=== PATIENT | male | born 1945 | race Caucasian/White ===

== ENCOUNTER → 2018-02-03 13:09 | Outpatient (CLI) | payer MEDICARE, SELFPAY | PROVIDERS: PCP Family Medicine; Visit Provider Urology | DX: Z12.5 Encounter for screening for malignant neoplasm of prostate (principal); R97.20 Elevated prostate specific antigen [PSA] | CPT/HCPCS: 36415; 84153 ==

== ENCOUNTER 2018-04-29 21:26 | Emergency (ER) | payer MEDICARE, SELFPAY ==
[2018-04-29 21:34] VITALS: BP 129/97; PULSE 138; RESP 16; TEMP 36.7; O2SAT 99; BMI 25.7
--- NOTE | 2018-04-29 21:51 | DI.RAD.S_ITS ---
PROCEDURE: XR CHEST 1V INDICATIONS: chest pain TECHNIQUE: One view of the chest was acquired. COMPARISON: [facility], , CHEST 2 VIEW, 05/11/2013, 11:09. FINDINGS: Surgical changes and devices: None. Lungs and pleura: No pleural effusions or pneumothorax. Lungs are clear. Mediastinum: Mediastinal contours appear normal. Heart size is normal. Bones and chest wall: No suspicious bony lesions. Overlying soft tissues appear unremarkable. IMPRESSION: Normal for age, source of current symptoms is not seen. Dictated by: Sarath Stanford M.D. on 04/30/2018 at 8:21 Approved by: Sarath Stanford M.D. on 04/30/2018 at 8:22
[2018-04-29 21:56] VITALS: BP 126/67; PULSE 139
[2018-04-29] MEDS: SODIUM CHLORIDE 0.9% 1,000 ML 1000 ML IV (21:56)
[2018-04-29] MEDS: dilTIAZem 25 MG/5 ML SDV 10 MG IV (21:56)
[2018-04-29 21:58] LABS: Add Manual Diff / Slide Review NO; Basophils Percent Auto 0.8 % (0-2); Eosinophils Percent Auto 1.7 % (2-4); Hematocrit 44.6 % (41-53); Hemoglobin 15.2 g/dL (13.5-17.5); Lymphocytes Percent Auto 15.1 % (25-40); Mean Corpuscular HGB Conc 34.2 % (30-36); Mean Corpuscular Hemoglobin 30.6 PG (26-34); Mean Corpuscular Volume 89.5 fL (80-100); Monocytes Percent Auto 5.6 % (3-14); Neutrophils Absolute Auto 8700 /uL (3000-5900); Neutrophils Percent Auto 76.8 % (50-75); Platelet Count 146 X10^3/uL (150-400); Red Blood Cell Count 4.98 X10^6/uL (4.5-5.9); Red Cell Distribution Width 12.3 % (11.6-14.8); White Blood Cell Count 11.4 X10^3/uL (4.5-11.0)
[2018-04-29 22:01] LABS: INR 1.1 (0.9-1.3); Prothrombin Time 12.4 SECONDS (10.1-12.7)
[2018-04-29 22:04] LABS: PTT Partial Thromboplastin Tim 31 SECONDS (26.4-36.2)
[2018-04-29 22:07] LABS: Alanine Aminotransferase 35 IU/L (21-72); Albumin 4.3 g/dL (3.5-5.0); Albumin Globulin Ratio 1.5 (1.0-2.8); Alkaline Phosphatase 76 U/L (38-126); Aspartate Aminotransferase 33 IU/L (17-59); Bilirubin Total 0.7 mg/dL (0.2-1.3); Blood Urea Nitrogen 19 mg/dL (9-20); Calcium 10.2 mg/dL (8.4-10.2); Carbon Dioxide 23 mmol/L (22-32); Chloride 105 mmol/L (98-107); Creatine Kinase 242 U/L (55-170); Estimated Glomerular Filt Rate > 60.0 mL/min (>60); Globulin 2.8 g/dL (1.7-4.1); Glucose 193 mg/dL (80-110); HEMOLYSIS < 15 (0-50); Potassium 3.8 mmol/L (3.4-5.1); Sodium 141 mmol/L (137-145); Total Protein 7.1 g/dL (6.3-8.2)
--- NOTE | 2018-04-29 22:11 | ED_ITS ---
HPI - Arrhythmia/Palpitations General Chief Complaint: Arrhythmia/Palpitations Stated Complaint: THINKS A-FIB Time Seen by Provider: 04/29/18 21:51 Source: patient Mode of arrival: ambulatory Limitations: no limitations History of Present Illness HPI narrative: Patient is a 73-year-old male who presents heart palpitations. He says it started while he was playing basketball this evening. Feels a little lightheaded but had no syncopal episodes. He is noted to be in atrial flutter. He said he has had 1 episode of this in the past he now takes an aspirin 81 mg daily. This evening when this happened he took 5 baby aspirins. His no chest pain or shortness of breath. No nausea or vomiting. MD complaint: rapid heart beat Related Data Home Medications Medication Instructions Recorded Confirmed ASPIRIN (Aspirin) 81 mg PO Q DAY #0 07/01/11 04/29/18 FIBER (FIBER TABLETS) 1 tab PO Q DAY #0 07/01/11 MULTIVITAMIN (#MULTIPLE VITAMINS) 1 cap PO Q DAY PRN #0 07/01/11 Previous Rx's Medication Instructions Recorded omeprazole 20 mg PO QDAY@0600 #90 cap 07/01/17 simvastatin [Zocor] 40 mg PO Q DAY #90 tab 09/26/17 Allergies Allergy/AdvReac Type Severity Reaction Status Date / Time Penicillins [PENICILLINS] Allergy Severe rash Verified 04/29/18 21:34 tadalafil [From CIALIS] Allergy Severe headache Verified 04/29/18 21:34 Review of Systems Review of Systems All systems reviewed & are unremarkable except as noted in HPI and below Constitutional Denies chills, Denies fever(s), Denies lethargy and Denies weakness Cardiovascular Reports as per HPI, Denies dyspnea and Denies dyspnea on exertion Respiratory Denies cough, Denies dyspnea, Denies dyspnea on exertion and Denies wheezing Gastrointestinal Gastrointestinal: Denies abdominal pain, Denies change in bowel habits, Denies diarrhea, Denies nausea and Denies vomiting Genitourinary Denies hematuria, Denies flank pain, Denies urinary incontinence and Denies urinary urgency Musculoskeletal Denies back pain, Denies muscle weakness, Denies numbness and Denies tingling Integumentary/Breasts Denies pruritus, Denies erythema, Denies rash and Denies wounds Neurologic Denies numbness, Denies tingling and Denies weakness Allergic/Immunologic Denies wheezing PFSH Medical History Hyperlipidemia (Acute) Paroxysmal atrial fibrillation (Acute) Surgical History Status post colonoscopy Status post colonoscopy Family History Father Heart disease Mother Cancer Grandmother Heart disease Social History Smoking Status: Never smoker Exam Initial Vital Signs Initial Vital Signs: Vital Signs Temperature 98.1 F 04/29/18 21:34 Pulse Rate 138 H 04/29/18 21:34 Respiratory Rate 16 04/29/18 21:34 Blood Pressure 129/97 H 04/29/18 21:34 Pulse Oximetry 99 04/29/18 21:34 GENERAL: Alert well-appearing elderly male in no acute distress HEENT: Head atraumatic,EOMI, pupils reactive, no JVD CARDIOVASCULAR: Regular, tachycardic no murmurs RESPIRATORY: Breath sounds equal bilaterally, no wheezes rales or rhonchi. ABDOMEN: Soft, nontender. Normoactive bowel sounds all 4 quadrants. No guarding or rebound. EXTREMITIES: Normal range of motion, no clubbing or edema. Neurovascularly intact NEUROLOGICAL: Alert and oriented x4.Normal gait and speech. Cranial nerves II through XII grossly intact. SKIN: Warm, dry, no laceration, no petechiae, no rashes or lesions. Scores CHADS-VASc Congestive heart failure: no Hypertension: no Age 75 years or older: no Diabetes mellitus: no Stroke, TIA, or TE: no Vascular disease: no Age 65 to 74 years: no Sex category (female): Male CHADS-VASc Score: 0 Course Orders Ordered: ED Orders 04/29/18 21:40 Complete Blood Count AUTO DIFF Stat Comprehensive Metabolic Panel Stat Magnesium Stat Partial Thromboplastin Time Stat Prothrombin Time INR Stat Thyroid Stimulating Hormone Stat Troponin & CK Cardiac Panel Stat 04/29/18 21:51 XR chest 1V Stat EKG-12 Lead Stat 04/29/18 23:26 Troponin I Stat Discontinued Medications Diltiazem HCl (Cardizem) 10 mg IV NOW ONE Stop: 04/29/18 21:52 Last Admin: 04/29/18 21:56 Dose: 10 mg Sodium Chloride (Normal Saline 0.9%) 1,000 mls @ 1,000 mls/hr IV CONT LINDA Last Infusion: 04/30/18 00:18 Dose: 0 mls/hr Admin: 04/29/18 21:56 Dose: 1,000 mls/hr Vital Signs - 8 hr 04/29/18 21:34 04/29/18 21:56 04/29/18 22:25 Temperature 98.1 F Pulse Rate 138 H 139 H 84 Respiratory Rate 16 26 H Blood Pressure 129/97 H 126/67 H Blood Pressure [Left Arm] 116/76 Pulse Oximetry 99 98 04/29/18 23:03 04/30/18 00:18 Temperature Pulse Rate 66 60 Respiratory Rate 15 15 Blood Pressure Blood Pressure [Left Arm] 116/85 H 102/65 Pulse Oximetry 99 97 MDM - Arrhythmia/Palpitations Lab Data Attestation: I reviewed the patient's lab results. Result diagrams: 04/29/18 21:40 04/29/18 21:40 Lab Results 04/29/18 04/29/18 04/29/18 Range/Units 21:40 21:40 21:40 WBC 11.4 H (4.5-11.0) X10^3/uL RBC 4.98 (4.5-5.9) X10^6/uL Hgb 15.2 (13.5-17.5) g/dL Hct 44.6 (41-53) % MCV 89.5 (80-100) fL MCH 30.6 (26-34) PG MCHC 34.2 (30-36) % RDW 12.3 (11.6-14.8) % Plt Count 146 L (150-400) X10^3/uL Neut % (Auto) 76.8 H (50-75) % Lymph % (Auto) 15.1 L (25-40) % [place] % (Auto) 5.6 (3-14) % Eos % (Auto) 1.7 L (2-4) % Baso % (Auto) 0.8 (0-2) % Neut # (Auto) 8700 H (9418-9597) /uL PT 12.4 (10.1-12.7) SECONDS INR 1.1 (0.9-1.3) APTT 31 (26.4-36.2) SECONDS Sodium 141 (137-145) mmol/L Potassium 3.8 (3.4-5.1) mmol/L Chloride 105 (98-107) mmol/L Carbon Dioxide 23 (22-32) mmol/L BUN 19 (9-20) mg/dL Creatinine 1.00 (0.66-1.25) mg/dL Estimated GFR > 60.0 (>60) mL/min BUN/Creatinine Ratio 19.0 (6-22) Glucose 193 H (80-110) mg/dL Calcium 10.2 (8.4-10.2) mg/dL Magnesium 2.0 (1.6-2.3) mg/dL Total Bilirubin 0.7 (0.2-1.3) mg/dL AST 33 (17-59) IU/L ALT 35 (21-72) IU/L Alkaline Phosphatase 76 (38-126) U/L Total Creatine Kinase 242 H (55-170) U/L CK-MB (CK-2) 8.74 H (<2.37) ng/mL CK-MB (CK-2) Rel Index 3.6 (1.5-5.0) % Troponin I 0.043 H (0.01-0.034) ng/mL Total Protein 7.1 (6.3-8.2) g/dL Albumin 4.3 (3.5-5.0) g/dL Globulin 2.8 (1.7-4.1) g/dL Albumin/Globulin Ratio 1.5 (1.0-2.8) TSH (0.47-4.68) uIU/mL 04/29/18 04/29/18 Range/Units 21:40 23:26 WBC (4.5-11.0) X10^3/uL RBC (4.5-5.9) X10^6/uL Hgb (13.5-17.5) g/dL Hct (41-53) % MCV (80-100) fL MCH (26-34) PG MCHC (30-36) % RDW (11.6-14.8) % Plt Count (150-400) X10^3/uL Neut % (Auto) (50-75) % Lymph % (Auto) (25-40) % [place] % (Auto) (3-14) % Eos % (Auto) (2-4) % Baso % (Auto) (0-2) % Neut # (Auto) (4015-7329) /uL PT (10.1-12.7) SECONDS INR (0.9-1.3) APTT (26.4-36.2) SECONDS Sodium (137-145) mmol/L Potassium (3.4-5.1) mmol/L Chloride (98-107) mmol/L Carbon Dioxide (22-32) mmol/L BUN (9-20) mg/dL Creatinine (0.66-1.25) mg/dL Estimated GFR (>60) mL/min BUN/Creatinine Ratio (6-22) Glucose (80-110) mg/dL Calcium (8.4-10.2) mg/dL Magnesium (1.6-2.3) mg/dL Total Bilirubin (0.2-1.3) mg/dL AST (17-59) IU/L ALT (21-72) IU/L Alkaline Phosphatase (38-126) U/L Total Creatine Kinase (55-170) U/L CK-MB (CK-2) (<2.37) ng/mL CK-MB (CK-2) Rel Index (1.5-5.0) % Troponin I 0.063 H (0.01-0.034) ng/mL Total Protein (6.3-8.2) g/dL Albumin (3.5-5.0) g/dL Globulin (1.7-4.1) g/dL Albumin/Globulin Ratio (1.0-2.8) TSH 1.83 (0.47-4.68) uIU/mL Imaging Data Chest x-ray: Attestation: I personally reviewed and interpreted this imaging study as follows: My impression: No acute cardiopulmonary process ECG Data Attestation: I personally reviewed and interpreted this ECG as follows: Prior ECG tracings: available for review Interpretation: EKG 1.: Atrial flutter with rate [address] changes EKG 2. Normal sinus rhythm rate 75 T-wave inversion noted in lead 3, which was present in [address] changes MDM Narrative Medical decision making narrative: He spontaneously converted after 10 mg of Cardizem. He is feeling much better. Patient has no chest pain. He remains chest pain-free in the ED. Troponin indeterminate. Repeat troponin remains indeterminate slightly more elevated but likely from tachycardia. Patient is asymptomatic. I discussed all findings with the patient and spouse, Education has been performed regarding treatment plan, diagnosis, warning signs and symptoms and all concerns have been addressed. Verbally agree with and understood all of the above. Discharge Plan Departure Patient Disposition: Home, Self-Care Clinical Impression: Atrial flutter Discharge Date/Time: 04/30/18 00:41 Interventions: ED Discharge Assessment Last Done: 04/30/18 00:19 Instructions: Atrial Flutter Activity Restrictions/Additional Instructions: *You have been diagnosed with atrial flutter *What to do: May require cardiology evaluation. Please speak to her primary care provider about this *Continue to take medications as directed Continues to take aspirin 81 mg once a day *Follow up with your primary care provider in 2-3 days *Return to ER if you should have chest pain, heart palpitations, dizziness, lightheadedness or any new, worsening or concerning symptoms Prescriptions: No Action ASPIRIN (Aspirin) 81 mg PO Q DAY Qty: 0 RF: 0 FIBER (FIBER TABLETS) 1 tab PO Q DAY Qty: 0 RF: 0 MULTIVITAMIN (#MULTIPLE VITAMINS) 1 cap PO Q DAY PRN Qty: 0 RF: 0 omeprazole 20 MG capsule,delayed release(DR/EC) 20 mg PO QDAY@0600 Qty: 90 RF: 2 simvastatin [Zocor] 40 MG tablet 40 mg PO Q DAY Qty: 90 RF: 1 Referrals: See Spivey MD [Primary Care Provider] -
[2018-04-29 22:18] LABS: Troponin I 0.043 ng/mL (0.01-0.034)
[2018-04-29 22:22] LABS: CKMB % Relative Index 3.6 % (1.5-5.0); Creatine Kinase MB 8.74 ng/mL (<2.37)
[2018-04-29 22:25] VITALS: BP 116/76; PULSE 84; RESP 26; O2SAT 98
[2018-04-29 22:43] LABS: Thyroid Stimulating Hormone 1.83 uIU/mL (0.47-4.68)
[2018-04-29 23:03] VITALS: BP 116/85; PULSE 66; RESP 15; O2SAT 99
[2018-04-30 00:11] LABS: Troponin I 0.063 ng/mL (0.01-0.034)
[2018-04-30 00:18] VITALS: BP 102/65; PULSE 60; RESP 15; O2SAT 97
== END 2018-04-30 00:41 | disposition home or self-care (01) ==
PROVIDERS: Emergency Provider Emergency Medicine; Family Provider Family Medicine; PCP Family Medicine
DX: I48.92 Unspecified atrial flutter (principal)
CPT/HCPCS: 36415; 36591; 71045; 80053; 82550; 82553; 83735; 84443; 84484; 85025; 85610; 85730; 93005; 93010; 96361; 96374; 99283; 99285

== ENCOUNTER → 2018-05-09 09:21 | Outpatient (CLI) | payer MEDICARE, SELFPAY ==
[2018-05-09 09:55] LABS: Add Manual Diff / Slide Review NO; Basophils Percent Auto 1.2 % (0-2); Eosinophils Percent Auto 5.8 % (2-4); Hematocrit 44.8 % (41-53); Hemoglobin 15.4 g/dL (13.5-17.5); Lymphocytes Percent Auto 36.2 % (25-40); Mean Corpuscular HGB Conc 34.4 % (30-36); Mean Corpuscular Hemoglobin 30.5 PG (26-34); Mean Corpuscular Volume 88.5 fL (80-100); Monocytes Percent Auto 5.2 % (3-14); Neutrophils Absolute Auto 3100 /uL (3000-5900); Neutrophils Percent Auto 51.6 % (50-75); Platelet Count 153 X10^3/uL (150-400); Red Blood Cell Count 5.06 X10^6/uL (4.5-5.9); Red Cell Distribution Width 12.7 % (11.6-14.8); White Blood Cell Count 5.9 X10^3/uL (4.5-11.0)
[2018-05-09 10:28] LABS: Alanine Aminotransferase 38 IU/L (21-72); Albumin 4.2 g/dL (3.5-5.0); Albumin Globulin Ratio 1.5 (1.0-2.8); Alkaline Phosphatase 59 U/L (38-126); Aspartate Aminotransferase 31 IU/L (17-59); BUN Creatinine Ratio 21.1 (6-22); Bilirubin Total 0.8 mg/dL (0.2-1.3); Blood Urea Nitrogen 19 mg/dL (9-20); Calcium 10.3 mg/dL (8.4-10.2); Carbon Dioxide 29 mmol/L (22-32); Chloride 104 mmol/L (98-107); Estimated Glomerular Filt Rate > 60.0 mL/min (>60); Globulin 2.8 g/dL (1.7-4.1); Glucose 130 mg/dL (80-110); HEMOLYSIS < 15 (0-50); Potassium 4.4 mmol/L (3.4-5.1); Sodium 141 mmol/L (137-145)
[2018-05-09 10:33] LABS: Hemoglobin A1C% w Est Avg Glu 6.5 % (4.0-6.0)
[2018-05-09 15:30] LABS: Creatinine Urine Random 86.9 mg/dL
[2018-05-09 15:40] LABS: Microalbumi Creatinin Ratio Ur 6.9 ug/mg CR (<30); Microalbumin Urine Random < 0.6 mg/dL (0-1.6)
== END ==
PROVIDERS: PCP Family Medicine; Visit Provider Family Medicine
DX: E78.5 Hyperlipidemia, unspecified (principal); R73.9 Hyperglycemia, unspecified
CPT/HCPCS: 36415; 80053; 82043; 82570; 83036; 85025

== ENCOUNTER → 2018-05-24 11:04 | Outpatient (CLI) | payer MEDICARE, SELFPAY ==
[2018-05-24 11:48] LABS: Cholesterol 130 mg/dL (140-199); HDL Cholesterol 44 mg/dL (40-60); LDL Cholesterol Calculated 77 mg/dL (<100); Triglycerides 45 mg/dL (35-150)
[2018-05-24 11:50] LABS: Hemoglobin A1C% w Est Avg Glu 6.3 % (4.0-6.0)
[2018-05-24 12:18] LABS: Thyroid Stimulating Hormone 1.16 uIU/mL (0.47-4.68)
== END ==
PROVIDERS: Family Provider Family Medicine; PCP Family Medicine; Visit Provider Family Medicine
DX: R73.9 Hyperglycemia, unspecified (principal)
CPT/HCPCS: 36415; 80061; 83036; 84443

== ENCOUNTER → 2018-06-02 08:19 | Outpatient (CLI) | payer MEDICARE, SELFPAY ==
--- NOTE | 2018-06-02 08:23 | DI.ECHO.S_ITS ---
[facility] +---------+ : : [address] : : : : [phone] : : : : Phone: [phone]+ Echocardiogram Report + + :Name: JOVANNA PALMA Study Date: 06/02/2018 Height: 73 in : :[facility] Weight: 195 lb : : Gender: Male BSA: 2.1 m2 : :: 1945 Age: 73 yrs BP: 130/86 mmHg: :Reason For Study: Atrial fibrillation : :Ordering Physician: Dr. Cui : :Patric Performed By: Joi Molina : + + Interpretation Summary There is mild concentric left ventricular hypertrophy. The ejection fraction is estimated to be 55-60%. The ascending aorta is mildly enlarged. There is no significant valvular heart disease. Procedure: A two-dimensional transthoracic echocardiogram with color flow and Doppler was performed. The study quality was technically adequate. Comparison is made with the echocardiogram of 05/15/2013. The patient was in sinus bradycardia with heart rates between 46-62 bpm during the exam. Left Ventricle: The left ventricle is normal in size. There is mild concentric left ventricular hypertrophy. A false chord is noted (normal variant). The ejection fraction is estimated to be 55-60%. There are no focal wall motion abnormalities. Assessment of diastolic parameters indicates normal left ventricular diastolic function and normal filling pressures. Right Ventricle: The right ventricle is at the upper limits of normal in size. The right ventricular systolic function is normal. Atria: Both atria are normal in size. There is no Doppler evidence for an interatrial shunt. Mitral Valve: The mitral valve leaflets appear thickened, but open well. There is trace mitral regurgitation. Aortic Valve: The aortic valve is normal in structure and function. No aortic regurgitation is present. Tricuspid Valve: The tricuspid valve is normal in structure and function. There is trace tricuspid regurgitation. The right ventricular systolic pressure is estimated at 26 mmHg assuming a right atrial pressure of 3 mm Hg. Pulmonic Valve: The pulmonic valve is normal in structure and function. There is a trace or physiologic amount of pulmonic regurgitation. Great Vessels: The aortic root is normal size. The ascending aorta is mildly enlarged. The aortic arch is mildly enlarged. The IVC is of normal diameter and collapses greater than 50% with a sniff. This suggests a low right atrial pressure of 3 mm Hg. Pericardium/ Pleura There is no pericardial effusion. MMode/2D Measurements & Calculations LVIDd: 4.7 cm LVOT diam: 2.4 cm LVIDs: 3.0 cm Ao root diam: 4.0 cm FS: 35.5 % Aortic Jxn: 3.1 cm EPSS: 0.51 cm asc Aorta Diam: 3.5 cm IVSd: 1.2 cm Ao Arch Diam (Prox Trans): 3.4 cm LVPWd: 1.1 cm LV graf. diameter/BSA (cm/m^2): 2.2 LV sys. diameter/BSA (cm/m^2): 1.4 LA A2 area: 18.9 cm2 RA long axis: 5.2 cm LA A4 area: 21.5 cm2 RA area: 19.3 cm2 LA length (vol): 5.1 cm RA vol: 60.4 ml LA vol: 67.1 ml RA : 28.4 ml/m2 LA vol index: 31.5 ml/m2 IVC diam: 1.4 cm RVD1 (basal): 4.2 cm RVD2 (mid): 2.6 cm TAPSE: 2.3 cm Doppler Measurements & Calculations Ao V2 max: 115.2 cm/sec LVOT Max Delfino: 72.0 cm/sec Ao V2 mean: 74.4 cm/sec LV V1 max P.1 mmHg Ao max P.3 mmHg LV V1 VTI: 17.5 cm Ao mean P.5 mmHg JAILYN(I,D): 3.2 cm2 Ao V2 VTI: 25.3 cm JAILYN(V,D): 2.9 cm2 sev ratio: 0.69 JAILYN indexed to BSA (cm^2/m^2): 1.5 MV E max delfino: 55.6 cm/sec TR max delfino: 239.8 cm/sec MV A max delfino: 55.6 cm/sec TR max P.0 mmHg MV E/A: 1.0 PA V2 max: 78.6 cm/sec Med Peak E' Delfino: 5.4 cm/sec PA V2 mean: 57.3 cm/sec E/E' med: 10.3 PA mean P.4 mmHg Lat Peak E' Delfino: 9.1 cm/sec PA Accel Time: 0.11 sec E/E' lat: 6.1 E/e' average: 8.2 MV dec time: 0.24 sec MV P1/2t: 70.9 msec MV P1/2t max delfino: 55.7 cm/sec MVA(P1/2t): 3.1 cm2 Reading Physician:03:30 PM
== END ==
PROVIDERS: Family Provider Family Medicine; PCP Family Medicine; Visit Provider Family Medicine
DX: I48.91 Unspecified atrial fibrillation (principal)
CPT/HCPCS: 93306

== ENCOUNTER → 2018-09-06 08:35 | Outpatient (CLI) | payer MEDICARE, SELFPAY ==
[2018-09-06 09:54] LABS: Hemoglobin A1C% w Est Avg Glu 6.2 % (4.0-6.0)
== END ==
PROVIDERS: Family Provider Family Medicine; PCP Family Medicine; Visit Provider Family Medicine
DX: R73.9 Hyperglycemia, unspecified (principal)
CPT/HCPCS: 83036

== ENCOUNTER → 2019-02-16 12:38 | Outpatient (CLI) | payer MEDICARE, SELFPAY ==
[2019-02-16 14:25] LABS: Hemoglobin A1C% w Est Avg Glu 5.9 % (4.0-6.0)
[2019-02-16 15:03] LABS: Glucose 101 mg/dL (80-110)
[2019-02-16 15:33] LABS: Prostate Specific Antigen 3.79 ng/mL (0.10-4.00)
== END ==
PROVIDERS: Nurse Practitioner; Family Provider Family Medicine; PCP Family Medicine; Visit Provider Urology
DX: Z12.5 Encounter for screening for malignant neoplasm of prostate (principal); E11.9 Type 2 diabetes mellitus without complications; Z00.00 Encounter for general adult medical examination without abnormal findings
CPT/HCPCS: 36415; 82947; 83036; 84153; G0103

== ENCOUNTER → 2019-05-25 08:07 | Outpatient (CLI) | payer MEDICARE, SELFPAY ==
[2019-05-25 09:59] LABS: Hematocrit 44.1 % (41-53); Hemoglobin 14.8 g/dL (13.5-17.5); Mean Corpuscular HGB Conc 33.5 % (30-36); Mean Corpuscular Hemoglobin 30.7 PG (26-34); Mean Corpuscular Volume 91.4 fL (80-100); Platelet Count 149 X10^3/uL (150-400); Red Blood Cell Count 4.82 X10^6/uL (4.5-5.9); Red Cell Distribution Width 12.7 % (11.6-14.8); White Blood Cell Count 5.8 X10^3/uL (4.5-11.0)
[2019-05-25 10:15] LABS: Neutrophils Absolute Manual 2378 /uL (3000-5900); RBC Morphology Normal Morphology; Total Cells Counted 100
[2019-05-25 10:29] LABS: Alanine Aminotransferase 28 IU/L (21-72); Albumin 4.1 g/dL (3.5-5.0); Albumin Globulin Ratio 1.5 (1.0-2.8); Alkaline Phosphatase 60 U/L (38-126); Aspartate Aminotransferase 28 IU/L (17-59); BUN Creatinine Ratio 17.8 (6-22); Bilirubin Total 0.6 mg/dL (0.2-1.3); Blood Urea Nitrogen 16 mg/dL (9-20); Calcium 10.3 mg/dL (8.4-10.2); Carbon Dioxide 28 mmol/L (22-32); Chloride 105 mmol/L (98-107); Cholesterol 135 mg/dL (140-199); Estimated Glomerular Filt Rate > 60.0 mL/min (>60); Globulin 2.8 g/dL (1.7-4.1); Glucose 126 mg/dL (80-110); HDL Cholesterol 47 mg/dL (40-60); HEMOLYSIS < 15 (0-50); LDL Cholesterol Calculated 79 mg/dL (<100); Potassium 4.3 mmol/L (3.4-5.1); Sodium 142 mmol/L (137-145); Total Protein 6.9 g/dL (6.3-8.2); Triglycerides 45 mg/dL (35-150)
== END ==
PROVIDERS: PCP Family Medicine; Visit Provider Nurse Practitioner
DX: Z00.00 Encounter for general adult medical examination without abnormal findings (principal); R73.9 Hyperglycemia, unspecified
CPT/HCPCS: 36415; 80053; 80061; 83036; 85025

== ENCOUNTER → 2020-03-15 10:12 | Outpatient (CLI) | payer MEDICARE, SELFPAY ==
[2020-03-15 12:05] LABS: Prostate Specific Antigen 3.68 ng/mL (0.10-4.00)
== END ==
PROVIDERS: PCP Family Medicine; Referring Provider Urology; Visit Provider Urology
DX: Z12.5 Encounter for screening for malignant neoplasm of prostate (principal)
CPT/HCPCS: 36415; 84153

== ENCOUNTER → 2020-04-29 09:43 | Outpatient (CLI) | payer MEDICARE, SELFPAY ==
[2020-04-30 12:00] LABS: COVID19 Sendout Not Detected (Not Detect)
== END ==
PROVIDERS: PCP Family Medicine; Visit Provider Physician Assistant
DX: Z11.59 Encounter for screening for other viral diseases (principal)
CPT/HCPCS: 87635

== ENCOUNTER 2020-05-02 08:25 | Day surgery (SDC) | payer MEDICARE, SELFPAY ==
[2020-05-02] VITALS (7 sets, daily range): BP systolic 111–137; BP diastolic 71–97; PULSE 53–98; RESP 13–16; TEMP 36.3–36.7; O2SAT 94–97; BMI 23.9
--- NOTE | 2020-05-02 | PATH_ITS ---
[facility] Accession Number: [id number] . 01 Material submitted: . colon - SIGMOID POLYP . 01 Clinical history: . SDC . 02 Diagnosis: Sigmoid Colon, Polyp, Biopsy: Tubular adenoma. MRV 05/04/2020 1248 Local . 02 Electronically signed: . Alexus Mauro MD, Pathologist NPI- [id number] . 01 Gross description: . SIGMOID POLYP: Received in formalin are 2 fragment(s) of small, soft tissue measuring 0.3 x 0.3 x 0.1 cm to 0.2 x 0.2 x 0.1 cm submitted entirely in 1 cassette(s) /QBJ 05/03/2020 0818 Local . 02 Pathologist provided ICD-10: D12.5 . 02 CPT . 080518 Performed at: 01 [facility] [address] [id number] MD Ruben Tamayo MD Phone: [phone] Performed at: 02 [facility] [address] [place], [place] [id number] MD Alexus Mauro MD Phone: [phone]
[2020-05-02] MEDS: LACTATED RINGERS 1,000 ML 200 ML IV (09:05)
--- NOTE | 2020-05-02 09:17 | PM.HP.1 ---
History of Present Illness History of Present Illness Date Patient Seen: 05/02/20 Time Patient Seen: 09:17 Chief complaint: SDC Narrative: The patient presents for colorectal sreening. The previous colonoscopy 5 years ago that demonstrated adenomatous polyp which was removed.. No personal or family history of colon cancer. On further history denies any recent gastrointestinal symptoms. No nausea, vomiting, abdominal pain, loss of appetite, unexplained weight loss, change in bowel habits, diarrhea, constipation, melena, hematochezia, or bright red blood per rectum. Patient History Medical History (Updated 05/02/20 @ 09:17 by Epifanio Domínguez MD) Acne (Chronic ~1959) Arthritis (Acute) Atrial fibrillation (Acute) BPH (benign prostatic hyperplasia) (Chronic ~2010) Chicken pox (Resolved ~1953) Colon polyps (Chronic ~2008) Elevated PSA (Chronic ~2010) Finger fracture (Resolved ~1999) Foot pain (Chronic ~1989) GERD (gastroesophageal reflux disease) (Chronic) History of fungal skin infection (Chronic ~1984) Hyperlipidemia (Chronic) Nail fungus (Chronic ~1984) Paroxysmal atrial fibrillation (Chronic ~2012) Prostatitis (Chronic) Urinary frequency (Acute) UTI (urinary tract infection) (Chronic ~2010) Surgical History (Updated 05/22/18 @ 19:46 by Sunita Wang) Anesthesia (Resolved) History of facial surgery (Resolved ~1963) Status post colonoscopy (~2008) Status post colonoscopy (~2013) Family & Social History Family History (Updated 03/20/15 @ 00:00 by Conversion Provider) Father Heart disease Mother Cancer Grandmother Heart disease Social History: household members spouse Tobacco & Substance use: Smoking Status Never smoker alcohol intake current alcohol intake frequency a few times a week Substance Use Type does not use Meds Home Medications and Allergies Home Medications Medication Instructions Recorded Confirmed Type FIBER (FIBER TABLETS) 1 tab PO Q DAY #0 07/01/11 05/02/20 History MULTIVITAMIN (#MULTIPLE VITAMINS) 1 cap PO Q DAY PRN #0 07/01/11 05/02/20 History coenzyme Q10 300 mg capsule 300 mg PO DAILY 05/23/18 05/02/20 History aspirin 325 mg tablet 325 mg PO DAILY #90 tab 06/02/18 05/02/20 Rx tamsulosin 0.4 mg capsule 0.4 mg PO DAILY 02/16/19 05/02/20 History omeprazole 20 mg capsule,delayed 20 mg PO QDAY@0600 #90 cap 08/24/19 05/02/20 Rx release simvastatin 40 mg tablet 40 mg PO Q DAY #90 tab 08/25/19 05/02/20 Rx sodium,potassium,mag sulfates 17.5 177 ml PO DAILY #354 ml 04/26/20 05/02/20 Rx gram-3.13 gram-1.6 gram oral soln Allergies Allergy/AdvReac Type Severity Reaction Status Date / Time Penicillins [PENICILLINS] Allergy Mild rash Verified 05/02/20 08:46 tadalafil [From CIALIS] Allergy Mild headache Verified 05/02/20 08:46 Review of Systems Review of Systems Narrative: A 10 point review of systems is negative except as noted in the HPI Exam Vital Signs (past 8 hours): - 05/02/20 08:49 Temperature 97.5 F L Pulse Rate 76 Respiratory Rate 15 Blood Pressure 137/97 H Pulse Oximetry 97 Oxygen Delivery Method Room Air Narrative Exam Narrative: General-no acute distress, well nourished adult male HEENT-moist mucous membranes, no scleral icterus Neck-supple, no lymphadenopathy Chest- non labored respirations, clear to auscultation bilaterally Cardiac-regular rate no peripheral edema Abdomen-soft, nontender, non distended Extremities-warm, well perfused Neurological-alert and oriented, no focal deficits Assessment & Plan Assessment and plan (1) Screening for colon cancer: Status: Acute Assessment & Plan narrative: The patient requires colorectal screening and colonoscopy is recommended. Technical details were discussed. Risks, benefits, alternatives explained. Risks including but not limited to myocardial infarction, aspiration, bleeding, pain, missed lesion, incomplete examination, need for further radiographic studies, colonic perforation, and need for major abdominal surgery were discussed. All questions were answered to their satisfaction, and they are in agreement with this plan. COVID-19 COVID-19 status: Negative
[2020-05-02] MEDS: fentaNYL 250 MCG/5 ML INJ IV (09:48)
[2020-05-02] MEDS: MIDAZOLAM 5 MG/5 ML VIAL IV (09:50)
--- NOTE | 2020-05-02 10:11 | PM.OP.ENDO ---
Operative Date/Time/Diagnoses Date of procedure: 05/02/20 Time of procedure: 10:11 Pre-op diagnosis: Adenomatous polyps Post-op diagnosis: same Procedure & Clinicians Study performed: Colonoscopy Same procedure as scheduled: Yes Indications: 75-year-old man last colonoscopy 5 years ago demonstrated adenomatous polyps which were removed. Surgeon: Epifanio Domínguez Procedure Notes SCOAP/Timeout: Performed Procedure in detail: Patient placed in left lateral recumbent position. Time out was performed. Procedural sedation was administered with Versed and Fentanyl. Examination began with a thorough inspection of the perianal area there was no evidence of fissures, fistulae, external hemorrhoids or cutaneous malignancy. The colonoscopy scope was then placed into the rectum the the lumen was insufflated with air. The scope was carefully advanced forward. Ultimately the cecum was intubated and confirmed by identification of the ileocecal valve and the confluence of the taenia. The scope was then slowly withdrawn examining colon thoroughly in all directions. In the rectum the rectal columns were identified and retroflexion of the scope was performed for inspection of the distal rectum and anal canal. The colonoscopy was notable for the followin. Quality of the preparation-good 2. Sigmoid polyp benign-appearing less than 1 cm in maximal diameter removed with snare forceps. Base of the polyp was cauterized for hemostasis Scope withdrawal time: 10 Sedation minutes: 32 Findings: polyp Specimen(s): other (Sigmoid polyp) Complications: none Impression: Sigmoid polyp Post-procedure Recommendations: Colonscopy in 5 years Disposition: same day surgery
== END 2020-05-02 11:04 | disposition home or self-care (01) ==
PROVIDERS: PCP Family Medicine; Referring Provider Family Medicine; Visit Provider Surgery
PROC: 0DJD8ZZ Inspection of Lower Intestinal Tract, Via Natural or Artificial Opening Endoscopic (ICD-10-PCS; CPT 45378; principal; 2020-05-02 10:00)
DX: Z12.11 Encounter for screening for malignant neoplasm of colon (principal); Z86.010 Personal history of colon polyps; D12.5 Benign neoplasm of sigmoid colon
CPT/HCPCS: 45385; 99152; 99153; J2250; J3010

== ENCOUNTER → 2020-05-20 08:08 | Outpatient (CLI) | payer MEDICARE, SELFPAY ==
[2020-05-20 08:44] LABS: Add Manual Diff / Slide Review NO; Basophils Absolute Auto 100 /uL (0-100); Basophils Percent Auto 1.2 % (0-2); Eosinophils Absolute Auto 500 /uL (0-450); Eosinophils Percent Auto 7.2 % (2-4); Hematocrit 45.6 % (41-53); Hemoglobin 15.1 g/dL (13.5-17.5); Lymphocytes Absolute Auto 2000 /uL (1100-4500); Lymphocytes Percent Auto 31.1 % (25-40); Mean Corpuscular HGB Conc 33.1 % (30-36); Mean Corpuscular Hemoglobin 30.5 PG (26-34); Monocytes Absolute Auto 300 /uL (0-900); Monocytes Percent Auto 5.2 % (3-14); Neutrophils Absolute Auto 3500 /uL (1500-7000); Neutrophils Percent Auto 55.3 % (50-75); Platelet Count 149 X10^3/uL (150-400); Red Blood Cell Count 4.96 X10^6/uL (4.5-5.9); Red Cell Distribution Width 12.5 % (11.6-14.8); White Blood Cell Count 6.3 X10^3/uL (4.5-11.0)
[2020-05-20 09:02] LABS: Alanine Aminotransferase 31 IU/L (<50); Albumin 4.3 g/dL (3.5-5.0); Albumin Globulin Ratio 1.7 (1.0-2.8); Alkaline Phosphatase 56 U/L (38-126); Aspartate Aminotransferase 33 IU/L (17-59); BUN Creatinine Ratio 16.1 (6-22); Blood Urea Nitrogen 15 mg/dL (9-20); Calcium 10.2 mg/dL (8.4-10.2); Carbon Dioxide 29 mmol/L (22-32); Chloride 104 mmol/L (98-107); Cholesterol 153 mg/dL (140-199); Estimated Glomerular Filt Rate > 60.0 mL/min (>60); Globulin 2.6 g/dL (1.7-4.1); Glucose 128 mg/dL (80-110); HDL Cholesterol 54 mg/dL (40-60); HEMOLYSIS < 15 (0-50); LDL Cholesterol Calculated 84 mg/dL (<100); Potassium 4.4 mmol/L (3.4-5.1); Sodium 139 mmol/L (137-145); Total Protein 6.9 g/dL (6.3-8.2); Triglycerides 76 mg/dL (35-150)
== END ==
PROVIDERS: PCP Family Medicine; Referring Provider Family Medicine; Visit Provider Family Medicine
DX: E78.2 Mixed hyperlipidemia (principal); I48.91 Unspecified atrial fibrillation
CPT/HCPCS: 36415; 80053; 80061; 85025

== ENCOUNTER → 2021-05-17 08:01 | Outpatient (CLI) | payer MEDICARE, SELFPAY ==
[2021-05-17 08:41] LABS: Add Manual Diff / Slide Review NO; Basophils Absolute Auto 100 /uL (0-100); Basophils Percent Auto 1.1 % (0-2); Eosinophils Absolute Auto 300 /uL (0-450); Hematocrit 44.4 % (41-53); Hemoglobin 14.9 g/dL (13.5-17.5); Lymphocytes Absolute Auto 2300 /uL (1100-4500); Lymphocytes Percent Auto 35.1 % (25-40); Mean Corpuscular HGB Conc 33.5 % (30-36); Mean Corpuscular Hemoglobin 30.6 PG (26-34); Mean Corpuscular Volume 91.2 fL (80-100); Monocytes Absolute Auto 400 /uL (0-900); Monocytes Percent Auto 5.7 % (3-14); Neutrophils Absolute Auto 3500 /uL (1500-7000); Neutrophils Percent Auto 53.1 % (50-75); Platelet Count 137 X10^3/uL (150-400); Red Blood Cell Count 4.87 X10^6/uL (4.5-5.9); Red Cell Distribution Width 12.6 % (11.6-14.8); White Blood Cell Count 6.6 X10^3/uL (4.5-11.0)
[2021-05-17 09:11] LABS: Hemoglobin A1C% w Est Avg Glu 6.3 % (4.0-6.0)
[2021-05-17 09:38] LABS: Alanine Aminotransferase 30 IU/L (<50); Albumin 4.2 g/dL (3.5-5.0); Albumin Globulin Ratio 1.8 (1.0-2.8); Alkaline Phosphatase 57 U/L (38-126); Aspartate Aminotransferase 31 IU/L (17-59); BUN Creatinine Ratio 15.5 (6-22); Bilirubin Total 0.7 mg/dL (0.2-1.3); Blood Urea Nitrogen 13 mg/dL (9-20); Calcium 10.4 mg/dL (8.4-10.2); Carbon Dioxide 30 mmol/L (22-32); Chloride 108 mmol/L (98-107); Cholesterol 132 mg/dL (140-199); Estimated Glomerular Filt Rate > 60.0 mL/min (>60); Globulin 2.4 g/dL (1.7-4.1); Glucose 118 mg/dL (80-110); HDL Cholesterol 50 mg/dL (40-60); HEMOLYSIS < 15 (0-50); LDL Cholesterol Calculated 73 mg/dL (<100); Sodium 141 mmol/L (137-145); Total Protein 6.6 g/dL (6.3-8.2); Triglycerides 45 mg/dL (35-150)
[2021-05-17 10:08] LABS: Prostate Specific Antigen Scrn 3.86 ng/mL (0.1-4.0)
== END ==
PROVIDERS: PCP Family Medicine; Referring Provider Family Medicine; Visit Provider Family Medicine
DX: R73.9 Hyperglycemia, unspecified (principal); E78.2 Mixed hyperlipidemia; Z12.5 Encounter for screening for malignant neoplasm of prostate; K21.9 Gastro-esophageal reflux disease without esophagitis; R97.20 Elevated prostate specific antigen [PSA]; I48.91 Unspecified atrial fibrillation
CPT/HCPCS: 36415; 80053; 80061; 83036; 85025; G0103

== ENCOUNTER 2022-05-25 10:56 | Emergency (ER) | payer MEDICARE, SELFPAY ==
[2022-05-25] VITALS (14 sets, daily range): BP systolic 104–150; BP diastolic 60–80; PULSE 47–80; RESP 13–20; TEMP 36.7; O2SAT 95–100; BMI 24.4
--- NOTE | 2022-05-25 11:20 | DI.RAD.S_ITS ---
PROCEDURE: XR CHEST 1V INDICATIONS: chest pain TECHNIQUE: One view of the chest was acquired. COMPARISON: [facility], CR, XR CHEST 1V, 04/29/2018, 22:35. FINDINGS: Surgical changes and devices: None. Lungs and pleura: Lungs are clear. No pleural effusions or pneumothorax. Mediastinum: Mediastinal contours appear normal. Heart size is normal. Bones and chest wall: No suspicious bony lesions. Overlying soft tissues appear unremarkable. IMPRESSION: No acute cardiopulmonary abnormalities or focal airspace disease. Dictated by: Pal Pina M.D. on 05/25/2022 at 11:54 Approved by: Pal Pina M.D. on 05/25/2022 at 11:55
[2022-05-25 11:34] LABS: Add Manual Diff / Slide Review NO; Basophils Absolute Auto 100 /uL (0-100); Basophils Percent Auto 1.1 % (0-2); Eosinophils Absolute Auto 300 /uL (0-450); Hematocrit 45.3 % (41-53); Hemoglobin 15.2 g/dL (13.5-17.5); Lymphocytes Absolute Auto 2500 /uL (1100-4500); Mean Corpuscular HGB Conc 33.5 % (30-36); Mean Corpuscular Hemoglobin 29.9 PG (26-34); Mean Corpuscular Volume 89.5 fL (80-100); Monocytes Absolute Auto 400 /uL (0-900); Monocytes Percent Auto 5.5 % (3-14); Neutrophils Absolute Auto 3700 /uL (1500-7000); Neutrophils Percent Auto 52.4 % (50-75); Platelet Count 139 X10^3/uL (150-400); Red Blood Cell Count 5.06 X10^6/uL (4.5-5.9); Red Cell Distribution Width 13.1 % (11.6-14.8)
[2022-05-25 11:38] LABS: Alanine Aminotransferase 26 IU/L (<50); Albumin Globulin Ratio 1.4 (1.0-2.8); Alkaline Phosphatase 58 U/L (38-126); Aspartate Aminotransferase 27 IU/L (17-59); BUN Creatinine Ratio 13.9 (6-22); Bilirubin Total 0.7 mg/dL (0.2-1.3); Blood Urea Nitrogen 11 mg/dL (9-20); Calcium 9.8 mg/dL (8.4-10.2); Carbon Dioxide 25 mmol/L (22-32); Chloride 108 mmol/L (98-107); Creatine Kinase 138 U/L (55-170); Estimated Glomerular Filt Rate > 60 mL/min (>60); Globulin 2.9 g/dL (1.7-4.1); Glucose 151 mg/dL (80-110); Lipase 52 U/L (23-300); Magnesium 2.2 mg/dL (1.6-2.3); Potassium 3.9 mmol/L (3.4-5.1); Sodium 141 mmol/L (137-145); Total Protein 6.9 g/dL (6.3-8.2)
[2022-05-25 11:48] LABS: Troponin I < 0.012 ng/mL (0.01-0.034)
[2022-05-25 11:53] LABS: CKMB % Relative Index 5.2 % (1.5-5.0); Creatine Kinase MB 7.18 ng/mL (<2.37); HEMOLYSIS 20 (0-50)
--- NOTE | 2022-05-25 12:05 | ED.ARRPALP ---
HPI - Arrhythmia/Palpitations General Chief Complaint: Arrhythmia/Palpitations Stated Complaint: AFIB Time Seen by Provider: 05/25/22 11:42 Source: patient Mode of arrival: Ambulatory History of Present Illness HPI narrative: Patient here with . At 1:00 a.m. in the morning or 2:00 a.m. in the morning last night patient was already awake and felt some palpitations fluttering in his chest. No chest pain no dyspnea no sweating no syncope no dizziness no headache. He was able to sleep through the night. Awoke this morning with the same feeling. Patient had the same complaint 4 years ago seen here in 2018 in April and was given bolus 10 mg of Cardizem and it resolved. He did follow up with primary care for treadmill stress test and echocardiogram which were normal. Only takes baby aspirin a day. Is not on any antiarrhythmics. No history of heart attack strokes or diabetes. No recent changes in diet or medications. Patient in a flutter Related Data Home Medications Medication Instructions Recorded Confirmed FIBER (FIBER TABLETS) 1 tab PO Q DAY ##0 07/01/11 05/30/20 MULTIVITAMIN (#MULTIPLE VITAMINS) 1 cap PO Q DAY PRN ##0 07/01/11 05/30/20 coenzyme Q10 300 mg capsule 300 mg PO DAILY 05/23/18 05/30/20 tamsulosin 0.4 mg capsule (Flomax) 0.4 mg PO DAILY 02/16/19 05/30/20 Previous Rx's Medication Instructions Recorded aspirin 325 mg tablet 325 mg PO DAILY #90 tabs 06/02/18 omeprazole 20 mg capsule,delayed See Rx Instructions .Route 11/30/21 release .COMPLEX #90 caps simvastatin 20 mg tablet (Zocor) 20 mg PO BEDTIME #90 tabs 11/30/21 sildenafil 25 mg tablet See Rx Instructions .Route 05/21/22 .COMPLEX #30 tabs apixaban 5 mg tablet 5 mg PO BID #60 tabs 05/25/22 metoprolol succinate 25 mg 25 mg PO DAILY #30 tabs 05/25/22 tablet,extended release 24 hr Allergies Allergy/AdvReac Type Severity Reaction Status Date / Time Penicillins [PENICILLINS] Allergy Mild rash Verified 05/25/22 11:05 tadalafil [From CIALIS] Allergy Mild headache Verified 05/25/22 11:05 Review of Systems Review of Systems Narrative: GENERAL: Denies chills, fatigue, malaise, fever, sweats. HEENT: Denies sinus pain, ear pain, sore throat RESPIRATORY: Denies dyspnea, cough CARDIOVASCULAR: Denies chest pain, positive for palpitations GASTROINTESTINAL: Denies nausea, vomiting, abdominal pain : Denies dysuria, frequency, hematuria MUSCULOSKELETAL: denies muscle or bony pain SKIN: Denies rash, skin lesions NEUROLOGIC: Denies weakness, numbness ROS Unobtainable: All systems reviewed & are unremarkable except as noted in HPI and below Patient History Medical History Acne (~1959) Arthritis Atrial fibrillation BPH (benign prostatic hyperplasia) (~2010) Chicken pox (~1953) Colon polyps (~2008) Elevated PSA (~2010) Finger fracture (~1999) Foot pain (~1989) GERD (gastroesophageal reflux disease) History of fungal skin infection (~1984) Hyperlipidemia Nail fungus (~1984) Paroxysmal atrial fibrillation (~2012) Prostatitis Urinary frequency UTI (urinary tract infection) (~2010) Surgical History Anesthesia History of facial surgery (~1963) Status post colonoscopy (~2008) Status post colonoscopy (~2013) Family History Father Heart disease Mother Cancer Grandmother Heart disease Social History household members: spouse Smoking Status: Never smoker alcohol intake: current Smoking Status: Never smoker alcohol intake frequency: a few times a week Substance Use Type: does not use Exam Narrative Exam Narrative: GENERAL: in no distress, not toxic not dyspneic HEAD: Normocephalic. EYES: Pupils equal round No scleral icterus. ENT: Mucous membranes moist. NECK: Trachea midline. CARDIOVASCULAR: Regular rate and rhythm without murmurs, tachycardic RESPIRATORY: Clear to auscultation. Breath sounds equal bilaterally. No wheezes, rales, or rhonchi. GASTROINTESTINAL: Abdomen soft, non-tender EXTREMITIES: No gross deformities. BACK: No flank tenderness. NEURO: AOx4. SKIN: Warm and dry PSYCH: Not anxious, is cooperative Initial Vital Signs Initial Vital Signs: Vital Signs Temperature 98.0 F 09/09/22 10:59 Pulse Rate 80 05/25/22 10:59 Respiratory Rate 18 05/25/22 10:59 Blood Pressure 150/74 H 05/25/22 10:59 Pulse Oximetry 98 05/25/22 10:59 Oxygen Delivery Method 05/25/22 10:59 Course Course Course Narrative: No new issues during course of stay Orders Ordered: ED Orders 05/25/22 11:03 EKG-12 Lead Stat 05/25/22 11:15 Complete Blood Count AUTO DIFF Stat Comprehensive Metabolic Panel Stat Lipase Stat Magnesium Stat TSH [Thyroid Stimulating Hormone] Stat Troponin & CK Cardiac Panel Stat 05/25/22 11:20 XR chest 1V Stat 05/25/22 13:36 Troponin & CK Cardiac Panel Stat Discontinued Medications Apixaban (Apixaban 5 Mg Tablet) 5 mg PO NOW ONE Stop: 05/25/22 12:31 Last Admin: 05/25/22 12:36 Dose: 5 mg Documented By: [facility] Diltiazem HCl (Diltiazem 5 Mg/Ml Sdv) 10 mg IV NOW ONE Stop: 05/25/22 12:06 Last Admin: 05/25/22 12:12 Dose: 10 mg Documented By: KF Reevaluation(s) Reevaluation #1: Patient feeling much better. He states he does not feel palpitations. He is in rate controlled but a flutter. Heart rate of 70. At time of discharge. He will take half a tab of metoprolol when he gets home. He will continue full tab tomorrow morning. Return precautions reviewed with him and . They desire discharge home Time: 14:38 Consultations Consultation #1: s/w cardiology, dr barahona, he has reviewed laboratory studies and EKG. No cardioversion. No further Cardizem. Place patient on metoprolol succinate 25 mg daily, Eliquis 5 mg twice a day. Follow-up with their group, electrophysiology, Dr. Byers. Time: 12:28 Vital Signs Vital signs: Vital Signs - 8 hr 05/25/22 12:12 05/25/22 11:31 05/25/22 11:32 Pulse Rate 70 55 L 57 L Respiratory Rate 16 13 Blood Pressure 110/77 Pulse Oximetry 97 98 05/25/22 11:32 05/25/22 12:00 05/25/22 12:00 Pulse Rate 72 Respiratory Rate 14 Blood Pressure 139/67 118/64 Pulse Oximetry 98 05/25/22 12:11 05/25/22 12:11 05/25/22 12:18 Pulse Rate 71 66 Respiratory Rate 18 13 Blood Pressure 110/77 Pulse Oximetry 98 97 05/25/22 12:18 05/25/22 12:30 05/25/22 12:30 Pulse Rate 73 Respiratory Rate Blood Pressure 117/63 104/65 Pulse Oximetry 96 05/25/22 13:00 05/25/22 13:00 05/25/22 13:30 Pulse Rate 47 L Respiratory Rate 13 Blood Pressure 115/60 111/69 Pulse Oximetry 95 05/25/22 13:30 05/25/22 13:45 05/25/22 13:45 Pulse Rate 47 L 47 L Respiratory Rate 13 16 Blood Pressure 126/69 Pulse Oximetry 96 97 05/25/22 14:00 05/25/22 14:34 05/25/22 14:30 Pulse Rate 50 L 77 Respiratory Rate 19 16 Blood Pressure 118/80 Pulse Oximetry 98 100 05/25/22 14:30 Pulse Rate 71 Respiratory Rate 20 Blood Pressure Pulse Oximetry 96 MDM - Arrhythmia/Palpitations Differential Diagnosis Differential diagnosis: Likely sinus tachycardia, artial fibrillation, artial flutter, ventricular premature beats, supraventricular tachycardia and ventricular tachycardia Medical Records Medical records narrative: [place] [address] Echocardiography Report Signed Patient: Juno Tim MR#: [id number] : 1945 Acct:[id number] Age/Sex: 73 / M Date of Service: 06/02/18 Loc: ECHO Accession Number: [id number] ?? Procedure: EC echo doppler complete Ordering Provider: See Spivey MD ? [facility]---------+? [facility]? +---------+ : ? :? [address] [place] [address] ? : ? : : ? :? [place], [place] ? : ? : : ? :? [id number] ? : ? : : ? : ? Phone: [phone] : ? : +---------[phone]? [phone]? +---------+ ? Echocardiogram Report + + :Name: JUNO TIM ? ? ? Study Date: 06/02/2018? Height: 73 in? : :Hospital ? Weight: 195 lb : : ? Gender: Male? BSA: 2.1 m2? ? : :: 1945 ? Age: 73 yrs ? BP: 130/86 mmHg: :Reason For Study: Atrial fibrillation? : :Ordering Physician: Dr. Cui? : :Spivey? Performed By: Joi Molina ? : + + Interpretation Summary There is mild concentric left ventricular hypertrophy. The ejection fraction is estimated to be 55-60%. The ascending aorta is mildly enlarged. There is no significant valvular heart disease. ? ? Procedure: ? A two-dimensional transthoracic echocardiogram with color flow and Doppler was performed. The study quality was technically adequate. Comparison is made with the echocardiogram of 05/15/2013. The patient was in sinus bradycardia with heart rates between 46-62 bpm during the exam. Left Ventricle: ? The left ventricle is normal in size. There is mild concentric left ventricular hypertrophy. A false chord is noted (normal variant). The ejection fraction is estimated to be 55-60%. There are no focal wall motion abnormalities. Assessment of diastolic parameters indicates normal left ventricular diastolic function and normal filling pressures. Right Ventricle: ? The right ventricle is at the upper limits of normal in size. The right ventricular systolic function is normal. Atria: ? Both atria are normal in size. There is no Doppler evidence for an interatrial shunt. Mitral Valve: ? The mitral valve leaflets appear thickened, but open well. There is trace mitral regurgitation. Aortic Valve: ? The aortic valve is normal in structure and function. No aortic regurgitation is present. Tricuspid Valve: ? The tricuspid valve is normal in structure and function. There is trace tricuspid regurgitation. The right ventricular systolic pressure is estimated at 26 mmHg assuming a right atrial pressure of 3 mm Hg. Pulmonic Valve: ? The pulmonic valve is normal in structure and function. There is a trace or physiologic amount of pulmonic regurgitation. Great Vessels: ? The aortic root is normal size. The ascending aorta is mildly enlarged. The aortic arch is mildly enlarged. The IVC is of normal diameter and collapses greater than 50% with a sniff. This suggests a low right atrial pressure of 3 mm Hg. Pericardium/ Pleura ? There is no pericardial effusion. ? ? MMode/2D Measurements & Calculations LVIDd: 4.7 cm? LVOT diam: 2.4 cm LVIDs: 3.0 cm? Ao root diam: 4.0 cm FS: 35.5 % ? Aortic Jxn: 3.1 cm EPSS: 0.51 cm? asc Aorta Diam: 3.5 cm IVSd: 1.2 cm ? Ao Arch Diam (Prox Trans): 3.4 cm LVPWd: 1.1 cm LV graf. diameter/BSA (cm/m^2): 2.2 LV sys. diameter/BSA (cm/m^2): 1.4 ? LA A2 area: 18.9 cm2 ? RA long axis: 5.2 cm LA A4 area: 21.5 cm2 ? RA area: 19.3 cm2 LA length (vol): 5.1 cm? RA vol: 60.4 ml LA vol: 67.1 ml? RA : 28.4 ml/m2 LA vol index: 31.5 ml/m2 ? IVC diam: 1.4 cm ? RVD1 (basal): 4.2 cm RVD2 (mid): 2.6 cm TAPSE: 2.3 cm ? ? Doppler Measurements & Calculations Ao V2 max: 115.2 cm/sec? LVOT Max Delfino: 72.0 cm/sec Ao V2 mean: 74.4 cm/sec? LV V1 max P.1 mmHg Ao max P.3 mmHg? LV V1 VTI: 17.5 cm Ao mean P.5 mmHg ? JAILYN(I,D): 3.2 cm2 Ao V2 VTI: 25.3 cm ? JAILYN(V,D): 2.9 cm2 ? sev ratio: 0.69 ? JAILYN indexed to BSA (cm^2/m^2): 1.5 ? MV E max delfino: 55.6 cm/sec? TR max delfino: 239.8 cm/sec MV A max delfino: 55.6 cm/sec? TR max P.0 mmHg MV E/A: 1.0? PA V2 max: 78.6 cm/sec Med Peak E' Delfino: 5.4 cm/sec? PA V2 mean: 57.3 cm/sec E/E' med: 10.3 ? PA mean P.4 mmHg Lat Peak E' Delfino: 9.1 cm/sec? PA Accel Time: 0.11 sec E/E' lat: 6.1 E/e' average: 8.2 MV dec time: 0.24 sec MV P1/2t: 70.9 msec ? MV P1/2t max delfino: 55.7 cm/sec MVA(P1/2t): 3.1 cm2 ? Reading Physician:03:30 PM ? ? Lab Data Result diagrams: 05/25/22 11:15 05/25/22 11:15 Labs: Lab Results 05/25/22 05/25/22 05/25/22 Range/Units 11:15 11:15 11:15 WBC 7.0 (4.5-11.0) X10^3/uL RBC 5.06 (4.5-5.9) X10^6/uL Hgb 15.2 (13.5-17.5) g/dL Hct 45.3 (41-53) % MCV 89.5 (80-100) fL MCH 29.9 (26-34) PG MCHC 33.5 (30-36) % RDW 13.1 (11.6-14.8) % Plt Count 139 L (150-400) X10^3/uL Neut % (Auto) 52.4 (50-75) % Lymph % (Auto) 36.0 (25-40) % [place] % (Auto) 5.5 (3-14) % Eos % (Auto) 5.0 H (2-4) % Baso % (Auto) 1.1 (0-2) % Neut # (Auto) 3700 (5158-9654) /uL Lymph # (Auto) 2500 (5621-5854) /uL [place] # (Auto) 400 (0-900) /uL Eos # (Auto) 300 (0-450) /uL Baso # (Auto) 100 (0-100) /uL Sodium 141 (137-145) mmol/L Potassium 3.9 (3.4-5.1) mmol/L Chloride 108 H (98-107) mmol/L Carbon Dioxide 25 (22-32) mmol/L BUN 11 (9-20) mg/dL Creatinine 0.79 (0.66-1.25) mg/dL Estimated GFR > 60 (>60) mL/min BUN/Creatinine Ratio 13.9 (6-22) Glucose 151 H (80-110) mg/dL Calcium 9.8 (8.4-10.2) mg/dL Magnesium 2.2 (1.6-2.3) mg/dL Total Bilirubin 0.7 (0.2-1.3) mg/dL AST 27 (17-59) IU/L ALT 26 (<50) IU/L Alkaline Phosphatase 58 (38-126) U/L Total Creatine Kinase 138 (55-170) U/L CK-MB (CK-2) 7.18 H (<2.37) ng/mL CK-MB (CK-2) Rel Index 5.2 H (1.5-5.0) % Troponin I < 0.012 (0.01-0.034) ng/mL Total Protein 6.9 (6.3-8.2) g/dL Albumin 4.0 (3.5-5.0) g/dL Globulin 2.9 (1.7-4.1) g/dL Albumin/Globulin Ratio 1.4 (1.0-2.8) Lipase 52 (23-300) U/L TSH 1.27 (0.47-4.68) uIU/mL 05/25/22 Range/Units 13:36 WBC (4.5-11.0) X10^3/uL RBC (4.5-5.9) X10^6/uL Hgb (13.5-17.5) g/dL Hct (41-53) % MCV (80-100) fL MCH (26-34) PG MCHC (30-36) % RDW (11.6-14.8) % Plt Count (150-400) X10^3/uL Neut % (Auto) (50-75) % Lymph % (Auto) (25-40) % [place] % (Auto) (3-14) % Eos % (Auto) (2-4) % Baso % (Auto) (0-2) % Neut # (Auto) (1180-6460) /uL Lymph # (Auto) (7682-2779) /uL [place] # (Auto) (0-900) /uL Eos # (Auto) (0-450) /uL Baso # (Auto) (0-100) /uL Sodium (137-145) mmol/L Potassium (3.4-5.1) mmol/L Chloride (98-107) mmol/L Carbon Dioxide (22-32) mmol/L BUN (9-20) mg/dL Creatinine (0.66-1.25) mg/dL Estimated GFR (>60) mL/min BUN/Creatinine Ratio (6-22) Glucose (80-110) mg/dL Calcium (8.4-10.2) mg/dL Magnesium (1.6-2.3) mg/dL Total Bilirubin (0.2-1.3) mg/dL AST (17-59) IU/L ALT (<50) IU/L Alkaline Phosphatase (38-126) U/L Total Creatine Kinase 107 (55-170) U/L CK-MB (CK-2) 5.54 H (<2.37) ng/mL CK-MB (CK-2) Rel Index 5.2 H (1.5-5.0) % Troponin I 0.013 (0.01-0.034) ng/mL Total Protein (6.3-8.2) g/dL Albumin (3.5-5.0) g/dL Globulin (1.7-4.1) g/dL Albumin/Globulin Ratio (1.0-2.8) Lipase (23-300) U/L TSH (0.47-4.68) uIU/mL Imaging Data Chest x-ray: Radiologist's Impresson: [address] [address] XRay Report Signed Patient: Juno Tim MR#: [id number] : 1945 Acct:[id number] Age/Sex: 77 / M Date of Service: 05/25/22 Loc: ED Accession Number: [id number] ?? Procedure: XR chest 1V Ordering Provider: Jono Russo MD PROCEDURE:? XR CHEST 1V ? INDICATIONS:? chest pain ? TECHNIQUE:? One view of the chest was acquired.? ? COMPARISON:? [facility], JOSE ENRIQUE, XR CHEST 1V, 04/29/2018, 22:35. ? FINDINGS:? ? Surgical changes and devices:? None.? ? Lungs and pleura:? Lungs are clear.? No pleural effusions or pneumothorax.? ? Mediastinum:? Mediastinal contours appear normal.? Heart size is normal.? ? Bones and chest wall:? No suspicious bony lesions.? Overlying soft tissues appear unremarkable.? ? IMPRESSION:? No acute cardiopulmonary abnormalities or focal airspace disease. ? Dictated by: Pal Pina M.D. on 05/25/2022 at 11:54 ? ? Approved by: Pal Pina M.D. on 05/25/2022 at 11:55 ? ECG Data Interpretation: Atrial flutter MDM Narrative Medical decision making narrative: Appropriate for discharge home. I did review with tutoring assistant with treatment plan and no cardioversion. Medications provided here metoprolol and Eliquis as well as prescription. Patient hemodynamically stable. Appropriate for follow-up with Dr. Byers, cardiology group with electrophysiology. Patient and agree with treatment plan. Two sets of troponin were completed. Discharge Plan Departure Patient Disposition: Home Clinical Impression: Atrial flutter Instructions: DI for Atrial Flutter Activity Restrictions/Additional Instructions: Discontinue your daily aspirin. Do not take aspirin. Prescription for metoprolol and Eliquis has been [facility]. Please call provided cardiology office today to make appointment with Dr. Byers, tutoring assistant regarding atrial flutter. Return if worse if any questions or concerns. Prescriptions: New metoprolol succinate 25 mg tablet extended release 24 hr 25 mg PO DAILY Qty: 30 0RF apixaban 5 mg tablet 5 mg PO BID Qty: 60 0RF No Action FIBER (FIBER TABLETS) 1 tab PO Q DAY Qty: 0 MULTIVITAMIN (#MULTIPLE VITAMINS) 1 cap PO Q DAY PRN Qty: 0 aspirin 325 mg tablet 325 mg PO DAILY Qty: 90 3RF omeprazole 20 mg capsule,delayed release(DR/EC) See Rx Instructions .ROUTE .COMPLEX Qty: 90 3RF Dose Instruction: TAKE 1 CAPSULE BY MOUTH EVERY DAY AT 6:00AM Rx Instructions: TAKE 1 CAPSULE BY MOUTH EVERY DAY AT 6:00AM simvastatin [Zocor] 20 mg tablet 20 mg PO BEDTIME Qty: 90 3RF sildenafil 25 mg tablet See Rx Instructions .ROUTE .COMPLEX Qty: 30 0RF Dose Instruction: TAKE 1 TABLET BY MOUTH DAILY NEEDED FOR SEXUAL ACTIVITY; TAKE 30 MINUTES TO 4 HOURS BEFORE ACTIVITY Rx Instructions: TAKE 1 TABLET BY MOUTH DAILY NEEDED FOR SEXUAL ACTIVITY; TAKE 30 MINUTES TO 4 HOURS BEFORE ACTIVITY coenzyme Q10 300 mg capsule 300 mg PO DAILY tamsulosin [Flomax] 0.4 mg capsule 0.4 mg PO DAILY Referrals: Josiah Byers MD [Physician] - Nhan Sacnhez MD [Primary Care Provider] - Visit Report Forms: Patient Portal/API
[2022-05-25] MEDS: dilTIAZem 5 MG/ML SDV 10 MG IV (12:12)
[2022-05-25] MEDS: APIXABAN 5 MG TABLET PO (12:36)
[2022-05-25 13:44] LABS: Thyroid Stimulating Hormone 1.27 uIU/mL (0.47-4.68)
[2022-05-25 14:00] LABS: Creatine Kinase 107 U/L (55-170)
[2022-05-25 14:12] LABS: Troponin I 0.013 ng/mL (0.01-0.034)
[2022-05-25 14:16] LABS: CKMB % Relative Index 5.2 % (1.5-5.0); Creatine Kinase MB 5.54 ng/mL (<2.37)
--- NOTE | 2022-05-25 14:34 | PC.NURSE ---
patient up in room, denies chest pain or SOB. Reports no longer feels palpitations
== END 2022-05-25 14:42 | disposition home or self-care (01) ==
PROVIDERS: Emergency Provider Emergency Medicine; PCP Family Medicine
DX: I48.92 Unspecified atrial flutter (principal); R07.9 Chest pain, unspecified
CPT/HCPCS: 36415; 71045; 80053; 82550; 82553; 83690; 83735; 84443; 84484; 85025; 93005; 93010; 96374; 99284

== ENCOUNTER → 2022-05-30 08:26 | Outpatient (CLI) | payer MEDICARE, SELFPAY ==
[2022-05-30 09:50] LABS: Add Manual Diff / Slide Review NO; Basophils Absolute Auto 100 /uL (0-100); Eosinophils Absolute Auto 500 /uL (0-450); Eosinophils Percent Auto 6.9 % (2-4); Hematocrit 42.5 % (41-53); Hemoglobin 14.5 g/dL (13.5-17.5); Lymphocytes Absolute Auto 2400 /uL (1100-4500); Lymphocytes Percent Auto 34.7 % (25-40); Mean Corpuscular Hemoglobin 30.4 PG (26-34); Mean Corpuscular Volume 89.6 fL (80-100); Monocytes Absolute Auto 300 /uL (0-900); Monocytes Percent Auto 4.4 % (3-14); Neutrophils Absolute Auto 3600 /uL (1500-7000); Platelet Count 135 X10^3/uL (150-400); Red Blood Cell Count 4.75 X10^6/uL (4.5-5.9); Red Cell Distribution Width 13.2 % (11.6-14.8); White Blood Cell Count 6.8 X10^3/uL (4.5-11.0)
[2022-05-30 10:05] LABS: Hemoglobin A1C% w Est Avg Glu 6.4 % (4.0-6.0)
[2022-05-30 10:40] LABS: Alanine Aminotransferase 24 IU/L (<50); Albumin 3.9 g/dL (3.5-5.0); Albumin Globulin Ratio 1.4 (1.0-2.8); Alkaline Phosphatase 55 U/L (38-126); Aspartate Aminotransferase 25 IU/L (17-59); BUN Creatinine Ratio 18.8 (6-22); Bilirubin Total 0.8 mg/dL (0.2-1.3); Blood Urea Nitrogen 18 mg/dL (9-20); Carbon Dioxide 30 mmol/L (22-32); Chloride 106 mmol/L (98-107); Cholesterol 146 mg/dL (140-199); Estimated Glomerular Filt Rate > 60 mL/min (>60); Globulin 2.7 g/dL (1.7-4.1); Glucose 123 mg/dL (80-110); HDL Cholesterol 48 mg/dL (40-60); HEMOLYSIS < 15 (0-50); LDL Cholesterol Calculated 89 mg/dL (<100); Potassium 4.4 mmol/L (3.4-5.1); Sodium 142 mmol/L (137-145); Total Protein 6.6 g/dL (6.3-8.2); Triglycerides 46 mg/dL (35-150)
[2022-05-31 08:38] LABS: Parathyroid Hormone, Intact 58 pg/mL (15-65)
== END ==
PROVIDERS: PCP Family Medicine; Referring Provider Family Medicine; Visit Provider Family Medicine
DX: R73.9 Hyperglycemia, unspecified (principal); E78.2 Mixed hyperlipidemia; E83.52 Hypercalcemia; I48.0 Paroxysmal atrial fibrillation; K21.9 Gastro-esophageal reflux disease without esophagitis
CPT/HCPCS: 36415; 80053; 80061; 82310; 83036; 83970; 85025